=== PATIENT | female | born 1990 | race Caucasian/White ===

== ENCOUNTER → 2017-08-18 | Outpatient (CLI) | payer BC ==
[~2017-08-18] MED LIST: FERR325T5 PO
== END | disposition home or self-care (01) ==
LOC: C.PAPS 09:37
PROVIDERS: ATTEND Physician Assistant
DX: Z12.4 Encounter for screening for malignant neoplasm of cervix (principal)

== ENCOUNTER → 2017-08-18 | Outpatient (CLI) | payer BC ==
[2017-08-18 16:43] LABS: HEMATOCRIT 35.8 % (37-47); HEMOGLOBIN 12.2 g/dL (12.0-16.0); MEAN CELL VOLUME 83.4 fL (80-100); MEAN CORPUSCULAR HEMOGLOBIN 28.4 pg (25-34); MEAN CORPUSCULAR HGB CONC 34.1 g/dl (32-36); MEAN PLATELET VOLUME 11.6 fL (7.4-10.4); PLATELET COUNT 207 K/uL (130-400); RED CELL DISTRIBUTION WIDTH CV 13.1 % (11.5-14.5); RED CELL DISTRIBUTION WIDTH SD 39.7 fL (36.4-46.3); WHITE BLOOD COUNT 6.53 K/uL (4.8-10.8)
[2017-08-18 17:50] LABS: HEP C IGG 13 YRS+OLDER_RFLX NEG (NEG)
[2017-08-19 02:37] LABS: RAPID PLASMA REAGIN NONREACTIVE (NONREACT)
== END | disposition home or self-care (01) ==
LOC: C.LAB1850 15:47
PROVIDERS: ATTEND Physician Assistant
DX: Z11.3 Encounter for screening for infections with a predominantly sexual mode of transmission (principal); N92.0 Excessive and frequent menstruation with regular cycle